=== PATIENT | female | born 1970 | race Two or more races ===

== ENCOUNTER 2024-08-07 22:34 | Emergency (ER) | payer MEDICAID, OTHER ==
[~2024-08-07] VITALS: Ht 162.6 cm; Wt 72.6 kg
[2024-08-07 22:48] VITALS: BP 128/91; PULSE 96; RESP 14; TEMP 97.9; O2SAT 97
[2024-08-07 23:18] LABS: Basophils # (auto) 0 10 ^3/uL (0-0.2); Eosinophils # (auto) 0.1 10 ^3/uL (0-0.8); Monocytes # (auto) 0.3 10 ^3/uL (0-1.3); White Blood Cell 4.2 10^3/uL (4.4-10.8)
[2024-08-07 23:20] LABS: Eosinophils % (auto) 1.7 % (0.0-7.0); Hemoglobin 12.9 g/dL (12.2-16.2); Lymphocytes # (auto) 2.1 10 ^3/uL (0.4-5.4); Lymphocytes % (auto) 51.2 % (10.0-50.0); Mean Corpuscular Hemoglobin 26.4 pg (28.0-32.0); Mean Corpuscular Hgb Conc. 32.2 g/dL (32.0-36.0); Mean Corpuscular Volume 82.1 fL (80.0-100.0); Monocytes % (auto) 7.9 % (0.0-12.0); Neutrophils # (auto) 1.6 10 ^3/uL (1.6-8.6); Neutrophils % (auto) 38.2 % (37.0-80.0); Nucleated Red Blood Cells % 0.3 %; Platelet Count (auto) 266 10^3/uL (140-450); Red Blood Cells 4.87 10^6/uL (4.0-5.20); Red Cell Distribution Width 23.5 % (11.8-14.3)
[2024-08-07 23:30] LABS: Anion Gap 11 (5-15); Calcium 9.8 mg/dL (8.7-10.4); Carbon Dioxide 27 mmol/L (20-31)
[2024-08-07 23:32] LABS: Chloride 108 mmol/L (98-107); Potassium 3.5 mmol/L (3.5-5.1); Sodium 146 mmol/L (136-145)
[2024-08-07 23:35] LABS: BUN/Creatinine Ratio 8.3 (10.0-20.0)
[2024-08-07 23:41] LABS: Blood Urea Nitrogen 6 mg/dL (9-23); Glucose 117 mg/dL (74-106)
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
== END 2024-08-08 01:09 | disposition left against medical advice (07) ==
LOC: ER 22:34 → EDBD 22:34 → ER 08-08 01:09
DX: F10.129 Alcohol abuse with intoxication, unspecified (principal); V89.2XXA Person injured in unspecified motor-vehicle accident, traffic, initial encounter; Y93.89 Activity, other specified; Y92.89 Other specified places as the place of occurrence of the external cause; Y99.8 Other external cause status; Y90.8 Blood alcohol level of 240 mg/100 ml or more
CPT/HCPCS: 36415; 70450; 72125; 80048; 80320; 85025